=== PATIENT | male | born 1990 | race Caucasian/White ===

== ENCOUNTER 2019-05-26 22:15 | Emergency (ER) | payer SELFPAY ==
[~2019-05-26] VITALS: Ht 172.7 cm; Wt 86.2 kg
[~2019-05-26 22:15] MED LIST: AUGMENTIN 875875 MG PO; CEFADROXIL500 M1 PO; PREDNISONE10 MG PO; TOBRADEX 0.1%-0.5 ML OPH; TRAMADOL HCL50 MG PO; ZITHROMAX250 MG PO
[2019-05-26 22:43] LABS: BILIRUBIN NEGATIVE (NEGATIVE); BLOOD 3+ (NEGATIVE); CLARITY CLEAR (CLEAR); COLOR YELLOW (YELLOW); GLUCOSE NEGATIVE (NEGATIVE); KETONE NEGATIVE (NEGATIVE); LEUKO ESTERASE TRACE (NEGATIVE); NITRITE NEGATIVE (NEGATIVE); SPECIFIC GRAVITY >= 1.030 (1.005-1.030); UROBILINOGEN 0.2 E.U./dl (0.2-1.0)
[2019-05-26 23:10] LABS: RBC 21-30 rbc/hpf (0-2)
[2019-06-01 16:37] LABS: GONOCOCCUS BY NAA Positive (Negative)
== END 2019-05-27 00:04 | disposition home or self-care (01) ==
LOC: ED 22:15
PROVIDERS: Nurse Practitioner Family
DX: R31.9 Hematuria, unspecified (principal); R36.9 Urethral discharge, unspecified; R30.0 Dysuria; R35.0 Frequency of micturition; F17.200 Nicotine dependence, unspecified, uncomplicated; Z20.2 Contact with and (suspected) exposure to infections with a predominantly sexual mode of transmission

== ENCOUNTER 2023-05-07 19:30 | Emergency (ER) | payer BC ==
[~2023-05-07] VITALS: Ht 172.7 cm; Wt 97.5 kg
[2023-05-07] MEDS ORDERED: PREDNISONE20 M1 PO (20:14)
== END 2023-05-07 21:27 | disposition home or self-care (01) ==
LOC: ED 19:30
DX: L23.7 Allergic contact dermatitis due to plants, except food (principal); H61.22 Impacted cerumen, left ear; Z98.890 Other specified postprocedural states

== ENCOUNTER 2023-05-26 03:15 | Inpatient (IN) | payer BC ==
[2023-05-26] VITALS (10 sets, daily range): BP systolic 115–140; BP diastolic 66–87
[~2023-05-26] VITALS: Ht 172.7 cm; Wt 101.2 kg
[~2023-05-26 03:15] MED LIST changes: +PREDNISONE20 M1 PO
[2023-05-26 04:02] LABS: BILIRUBIN Negative (Negative); BLOOD 1+ (Negative); CLARITY Clear (Clear); COLOR Yellow (Yellow); GLUCOSE Negative (Negative); KETONE Negative (Negative); LEUKO ESTERASE Negative (Negative); NITRITE Negative (Negative); PH 5.5 (4.5-8.0); SPECIFIC GRAVITY >= 1.030 (1.001-1.030)
[2023-05-26 04:02] LABS: BASO % 0.3 % (0.0-1.0); EOS # 0.2 10*3/uL (0.0-0.4); EOS % 1.8 % (1.0-4.0); HEMATOCRIT 42.4 % (42.0-52.0); LYMPH # 2.8 10*3/uL (1.3-4.4); LYMPH % 30.1 % (27.0-41.0); MEAN CELL VOLUME 89.6 fl (80.0-94.0); MEAN CORPUSCULAR HGB 31.3 pg (27.0-31.0); MEAN CORPUSCULAR HGB CONC 34.9 g/dl (33.0-37.0); MEAN PLATELET VOLUME 9.3 fl (9.6-12.3); MONO # 0.7 10*3/uL (0.1-1.0); MONO % 7.6 % (3.0-9.0); NEUT # 5.5 10*3/uL (2.3-7.9); NEUT % 59.9 % (47.0-73.0); PLATELET COUNT AUTOMATED 218 10*3/uL (130-400); RED BLOOD COUNT 4.73 10*6/uL (4.50-5.90); RED CELL DISTRI WIDTH 12.3 % (0-14.5); WHITE BLOOD COUNT 9.3 10*3/uL (4.8-10.8)
[2023-05-26 04:18] LABS: ACT PARTIAL THROMBO TIME 25.3 SECONDS (20.0-32.1); INTERNATIONAL NORM RATIO 0.9 (2.0-3.5)
[2023-05-26 04:31] LABS: ALKALINE PHOSPHATASE 35 U/L (46-116); BUN 16 mg/dl (9-23); CHLORIDE 108 mmol/L (98-107); LIPASE 34 U/L (12-53); SGPT/ALT 45 U/L (10-49); TOTAL PROTEIN 6.9 gm/dL (6.0-8.0)
[2023-05-26 04:36] LABS: RBC 16-20 rbc/hpf (0-2)
[2023-05-26 04:37] LABS: BACTERIA 1+; MUCOUS 2+
[2023-05-26] MEDS ORDERED: ONDANSETRON HYDR4 M1 PO (09:53)
[2023-05-26] MEDS ORDERED: HYDROCODONE-AC1 EAC1 PO (09:53)
[2023-05-26] MEDS ORDERED: COLACE100 MG PO (09:53)
== END 2023-05-26 14:20 | disposition home or self-care (01) | DRG 419 ==
LOC: ED 03:15 → 4E 04:50 → EDHOLD 04:50 → 4E 05:11
PROVIDERS: Internal Medicine; ADMIT Family Medicine; ATTEND Family Medicine
PROC: 0FT44ZZ Resection of Gallbladder, Percutaneous Endoscopic Approach (ICD-10-PCS; principal; 2023-05-26)
DX: K80.00 Calculus of gallbladder with acute cholecystitis without obstruction (principal); K82.8 Other specified diseases of gallbladder; K76.0 Fatty (change of) liver, not elsewhere classified; E87.8 Other disorders of electrolyte and fluid balance, not elsewhere classified; F17.210 Nicotine dependence, cigarettes, uncomplicated; E66.9 Obesity, unspecified; R00.1 Bradycardia, unspecified; Z71.6 Tobacco abuse counseling; Z68.33 Body mass index [BMI] 33.0-33.9, adult

== ENCOUNTER 2024-01-11 18:04 | Emergency (ER) | payer BC ==
[~2024-01-11] VITALS: Ht 172.7 cm; Wt 97.5 kg
[~2024-01-11 18:04] MED LIST changes: +COLACE100 MG PO; +HYDROCODONE-AC1 EAC1 PO; +ONDANSETRON HYDR4 M1 PO
[2024-01-11] MEDS ORDERED: AVPAK AZITHROM250 M1 PO (18:33)
== END 2024-01-11 20:06 | disposition home or self-care (01) ==
LOC: ED 18:04
DX: J40 Bronchitis, not specified as acute or chronic (principal); Z98.890 Other specified postprocedural states; F17.200 Nicotine dependence, unspecified, uncomplicated

== ENCOUNTER 2025-04-28 20:31 | Emergency (ER) | payer BC ==
[~2025-04-28] VITALS: Ht 172.7 cm; Wt 93.4 kg
[~2025-04-28 20:31] MED LIST changes: +AVPAK AZITHROM250 M1 PO
[2025-04-28] MEDS ORDERED: SODIUM CHLORIDE 0.9% 1,000 ML IV ONE (20:50)
[2025-04-28 21:03] LABS: BASO % 0.3 % (0.0-1.0); EOS # 0.2 10*3/uL (0.0-0.4); EOS % 1.9 % (1.0-4.0); MEAN CELL VOLUME 88.1 fl (80.0-94.0); MEAN CORPUSCULAR HGB 30.6 pg (27.0-31.0); MEAN CORPUSCULAR HGB CONC 34.8 g/dl (33.0-37.0); MEAN PLATELET VOLUME 9.2 fl (9.6-12.3); MONO # 0.7 10*3/uL (0.1-1.0); MONO % 7.5 % (3.0-9.0); NEUT # 5.6 10*3/uL (2.3-7.9); NEUT % 56.6 % (47.0-73.0); PLATELET COUNT AUTOMATED 247 10*3/uL (130-400); RED BLOOD COUNT 4.77 10*6/uL (4.50-5.90); RED CELL DISTRI WIDTH 12.4 % (0-14.5); WHITE BLOOD COUNT 9.9 10*3/uL (4.8-10.8)
[2025-04-28 21:28] LABS: ALKALINE PHOSPHATASE 36 U/L (46-116); BUN 19 mg/dl (9-23); CHLORIDE 106 mmol/L (98-107); POTASSIUM 3.7 mmol/L (3.4-5.1); SGPT/ALT 45 U/L (5-49); TOTAL PROTEIN 7.2 gm/dL (6.0-8.0)
[2025-04-28] MEDS ORDERED: GOOD NEIGHBOR M25 M1 PO (22:44)
== END 2025-04-28 23:16 | disposition home or self-care (01) ==
LOC: ED 20:31
PROVIDERS: Nurse Practitioner Family
DX: R42 Dizziness and giddiness (principal); R00.2 Palpitations; F17.200 Nicotine dependence, unspecified, uncomplicated